=== PATIENT | female | born 1990 | race Two or more races ===

== ENCOUNTER 2022-07-26 23:11 | Emergency (ER) | payer OTHER ==
[~2022-07-26] VITALS: Ht 154.9 cm; Wt 50.0 kg
[2022-07-26 23:13] VITALS: BP 130/86
== END 2022-07-27 01:11 | disposition home or self-care (01) ==
LOC: EMS 23:12
DX: S00.81XA Abrasion of other part of head, initial encounter (principal); Y04.2XXA Assault by strike against or bumped into by another person, initial encounter; Y93.89 Activity, other specified; Y92.89 Other specified places as the place of occurrence of the external cause; Y99.8 Other external cause status
CPT/HCPCS: 70450; 99284